=== PATIENT | male | born 1995 ===

== ENCOUNTER 2024-08-25 13:12 | Emergency (ER) | payer OTHER, SELFPAY ==
[2024-08-25 13:18] VITALS: BMI 27.6
[2024-08-25 13:25] VITALS: BP 129/66
--- NOTE | 2024-08-25 13:33 | ED.GENMED ---
History of Present Illness
General
Chief Complaint: Change in Mental Status
Source: other (detention guards )
Time Seen by Provider: 08/25/24 13:33
History of Present Illness
History of Present Illness:
29 yr. old male brought by EMS patient is in custody [facility] Correctional officers report the patient was in [facility] last night was [id number] and they were called to [facility]. Intake was done
by [facility] at 0424. They were called to that hospital and brought him to the correctional facility however patient has been acting out since. There appears very combative spitting at everyone urinating everywhere and eating his own feces. He did
admit to them that he had used ' Xylazine, heroine and PCP.'
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
Patient presents sleeping with stable vital signs handcuffed upper lower extremities. Patient apparently just settled down about 2 minutes prior to arrival
Review of Systems
Review of Systems
Allergies reviewed?: Yes
Other source history: other ([facility] )
All Other Systems: Not applicable (pt not giving history )
Phy Exam
General Physical Exam
General Presentation: no apparent distress
General age: appears stated age
General Skin: warm and dry
General Habitus: normal
General Mental: other (sleepy )
General Hydration: appears well hydrated
Cardiovascular Exam
Cardiovascular Exam: regular rate/rhythm, no murmur and normal peripheral pulses
Pulmonary Exam
Pulmonary Exam: lungs clear and no respiratory distress
Neurological Exam
Neurological Exam: other (sleepy however will answer certain questions )
Musculoskeletal Exam
Musculoskeletal Exam: full ROM
Skin Exam
Skin Exam: normal color and warm/dry
Psychiatric Exam
Psychiatric Exam: other (sleeping )
Course
Orders/Labs/Results
Orders:
Orders
08/25/24 13:49
CT Cervical Spine W/o Iv Contr Urgent
Comment:
Reason For Exam: trauma
CT Head W/o Iv Contrast Urgent
Comment:
Reason For Exam: trauma
Vital Signs- Treatment ONCE
Frequency: Once
08/25/24 13:56
Acetaminophen Urgent
Alcohol Urgent
Complete Blood Count/With Diff Urgent
Comprehensive Metabolic Panel Urgent
Salicylate Urgent
08/25/24 16:01
Straight cath- Treatment ONCE
08/25/24 16:11
Fentanyl, Urine Urgent
Urinalysis Reflex To Culture Urgent
Date Specimen was Collected: 08/25/24
Time Specimen was Collected: 16:10
Urine Drug Abuse Screen Urgent
Date Specimen was Collected: 08/25/24
Time Specimen was Collected: 16:10
Urine Microscopic Reflex Cult Urgent
Abnormal Lab Results
08/25/24 08/25/24
13:56 16:11
Absolute Lymphs (auto) 3.6 H 10^3/uL
(1.2-3.4)
Absolute Monos (auto) 0.9 H 10^3/uL
(0.1-0.6)
Creatinine 0.6 L mg/dL
(0.7-1.3)
Glucose 121 H mg/dl
(70-99)
Ur Occult Blood Reflex 2+ A
(Negative)
Urine RBC 11-15 A /HPF
(0-2)
Urine Bacteria (Reflex) Few A
(Negative)
Salicylates < 1.0 L mg/dl
(2.0-20.0)
Acetaminophen < 10 L ug/ml
(10-30)
Ur Phencyclidine Scrn Positive H
(Negative)
U Benzodiazepines Scrn Positive H
(Negative)
Urine Cocaine Screen Positive H
(Negative)
08/25/24 13:56
08/25/24 13:56
Vital Signs
Initial and Last Documented VS:
Initial Vital Signs
Pulse Resp Pulse Ox
110 18 97
08/25/24 13:18 08/25/24 13:18 08/25/24 13:18
Last Documented Vital Signs
Temp Pulse Resp BP Pulse Ox
98.6 F 92 16 130/72 96
08/25/24 17:25 08/25/24 14:37 08/25/24 14:37 08/25/24 17:00 08/25/24 17:15
Billboard Installer consulted with Physician
Billboard Installer consulted with physician?: Yes
Name of Physician Consulted: Arabella
MDM/Problems Addressed
MDM/Problems Addressed:
29-year-old male was sent by [facility] for evaluation. Patient was very agitated combative spitting eating his own feces. He initially was seen at [facility] last night and was brought to [facility]
Facility. Because of his combativeness he was given Ativan and droperidol prior to arrival and while in the ambulance patient settled down and has been very sleepy here. He is in handcuffs both upper and lower extremities he was able to state his
name but has been very drowsy here in the ER. With combative bizarre behavior CAT scan of head was done which does show posterior skull hematoma but no underlying fracture and no intracranial; cervical spine CT was negative. IV line was inserted
patient was given fluids labs unremarkable. Patient had a straight cath for urine drug screen which does show Phencyclidine , benzos and cocaine.
Pt has has been sleeping here but is arousable and answer questions. Likely from Ativan and droperidol. I did speak with the infirm[facility] in the detention who is willing to take pt back. pt is cleared and stable for incarceration.
Case d/c w/ DR Bell
*Radiology
Radiology exam reviewed: radiology read reviewed
*Pulse Oximetry
Patient hypoxic: no
*Critical Care Note
Total Time (30-74mins, 75-104mins- exclusive of procedures): Not Applicable
ED Attending Note
-
Portions of this chart may have been created with voice recognition software.� Occasional wrong word or��sound alike� substitutions may have occurred due to the inherent limitations of voice recognition software.
Discharge Plan
Departure
Patient Disposition: Assisted
Date of Disposition: 08/25/24
Time of Disposition: 17:17
Patient with high blood pressure during this ER visit?: No
Condition: Fair
Covid-19: Not Applicable
Discharge Problem:
Drug abuse, Acute alteration in mental status
Instructions: Altered Mental Status (DC), Substance use disorder
Prescriptions:
No Action
doxycycline hyclate 100 mg Capsule
100 mg PO BID
naproxen 375 mg Tablet
375 mg PO BID
clonazepam 1 mg Tablet
1 mg PO BID
lorazepam 2 mg/mL Syringe
2 mg IM ONCE
Referrals:
[facility] [Family Provider] -
Activity Restrictions/Additional Instructions:
Patient was not given any additional medications here in the ER.
He had his labs checked and was given fluids.
His urine was positive for benzodiazepines, cocaine and Phencyclidine
CAT scan of brain was done which does show a hematoma to posterior skull but no underlying fracture and no evidence of intracranial hemorrhage. CAT scan of cervical spine was done and is negative as well.
Interventions
Interventions:
*Risk Screen - Suicide Last Done: 08/25/24 13:18
*General Assessment Last Done: 08/25/24 13:18
*Neglect/Abuse Screening Last Done: 08/25/24 13:18
*ED- Fall Risk Assessment Last Done: 08/25/24 18:16
*ED COVID-19 Vaccine History Last Done: 08/25/24 18:16
*Nursing Disposition Last Done: 08/25/24 18:16
ED- Pulmonary Assessment Last Done: 08/25/24 15:00
ED-Psychological Assessment Last Done: 08/25/24 15:00
ED- Neurological Assessment Last Done: 08/25/24 14:00
ED- Cardiac Assessment Last Done: 08/25/24 15:00
ED Swallowing Screen Last Done: 08/25/24 14:00
Discharge Date and Time
Discharge Date/Time: 08/25/24 18:17
Print Language: MALTESE
[2024-08-25 14:00] VITALS: BP 119/65
[2024-08-25 14:05] LABS: % Basophils 0.6 % (0-2); % Immature Granulocytes 0.4 % (0-0.5); % Lymphocytes 33.9 % (20.5-51.1); % Monocytes 7.9 % (1.7-9.3); % Neutrophils 55.2 % (42.2-75.2); Absolute Basophils 0.1 10^3/uL (0-0.2); Absolute Eosinophils 0.2 10^3/uL (0-0.7); Absolute Lymphocytes 3.6 10^3/uL (1.2-3.4); Absolute Monocytes 0.9 10^3/uL (0.1-0.6); Hematocrit 41.3 % (39.0-52.0); Hemoglobin 14.3 g/dL (13.0-18.0); Mean Corp Hgb Conc. 34.6 g/dL (33.0-37.0); Mean Corpuscular Hgb 29.1 pg (27.0-31.0); Mean Corpuscular Volume 83.9 fL (80.0-94.0); Mean Platelet Volume 9.7 fL (7.4-10.4); Nucleated Red Blood Cells % 0 % (-); Platelet Count 268 10^3/uL (130-400); Red Blood Cell Count 4.92 10^6/uL (4.70-6.10); Red Cell Dist. Width 13.1 % (11.5-14.5); White Blood Cell Count 10.8 10^3/uL (4.8-10.8)
[2024-08-25 14:17] LABS: ALT (SGPT) 17 U/L (0-50); AST (SGOT) 26 U/L (17-59); Acetaminophen < 10 ug/ml (10-30); Albumin 3.8 g/dl (3.5-5.0); Alkaline Phosphatase 74 U/L (38-126); Blood Urea Nitrogen 11 mg/dl (9-20); Calcium 9.5 mg/dl (8.4-10.2); Carbon Dioxide 26 mmol/L (22-30); Chloride 107 mmol/L (98-107); Estimated Creatinine Clearance > 125 ml/min; Glucose 121 mg/dl (70-99); Potassium 3.8 mmol/L (3.5-5.1); Salicylate < 1.0 mg/dl (2.0-20.0); Sodium 140 mmol/L (135-145); Total Bilirubin 0.7 mg/dl (0.2-1.3); Total Protein 6.7 g/dl (6.3-8.2); eGFR > 60.00
[2024-08-25 14:20] LABS: Alcohol None Detected
[2024-08-25 14:53] VITALS: BP 121/70
[2024-08-25 15:00] VITALS: BP 115/65
[2024-08-25 16:00] VITALS: BP 129/67
[2024-08-25 16:34] LABS: Urine Albumin Negative (Neg - Trace); Urine Bilirubin Negative (Negative); Urine Character Clear (Clear); Urine Color Yellow; Urine Glucose Negative (Negative); Urine Ketone Negative (Negative); Urine Leukocyte Negative (Negative); Urine Nitrite Negative (Negative); Urine Occult Blood 2+ (Negative); Urine Specific Gravity 1.015 (<1.030); Urine Urobilinogen Negative (Neg - 1+)
[2024-08-25 16:49] LABS: Amphetamines Negative (Negative); Barbiturates Negative (Negative); Benzodiazepines Positive (Negative); Buprenorphine Negative (Negative); Cocaine Positive (Negative); Marijuana Negative (Negative); Methadone Negative (Negative); Methamphetamines Negative (Negative); Opiates Negative (Negative); Phencyclidine Positive (Negative); Tricyclic Antidepressants Negative (Negative)
[2024-08-25 17:00] VITALS: BP 130/72
[2024-08-25 17:04] LABS: Urine Bacteria Few (Negative); Urine Squamous Cell 0-2 /LPF (Few)
[2024-08-25 17:09] LABS: Fentanyl, Urine Negative (Negative)
== END 2024-08-25 18:17 ==
LOC: EMR 13:12
PROVIDERS: Nurse Practitioner; EMERGENCY PHYSICIAN Student in an Organized Health Care Education/Training Program
DX: R41.82 Altered mental status, unspecified (principal); F19.10 Other psychoactive substance abuse, uncomplicated
CPT/HCPCS: 99284; 70450; 72125; 80053; 80143; 80179; 80306; 80307; 81003; 81015; 82077; 85025